=== PATIENT | female | born 1965 ===

== ENCOUNTER 2017-10-13 08:19 | Day surgery (SDC) | payer SELFPAY ==
[2017-10-13] MEDS ORDERED: Lactated Ringer's 1,000 ML IV ONE (08:37)
[2017-10-13] MEDS ORDERED: Propofol 10 mg/ml Inj (20 ML) ONE (09:55)
[2017-10-13] MEDS ORDERED: Lidocaine 2% MPF (5 ml) Inj ONE (09:56)
[2017-10-13 10:34] VITALS: BP 102/56; PULSE 49; RESP 13; TEMP 98; O2SAT 100
== END 2017-10-13 10:34 | disposition home or self-care (01) ==
LOC: H.ENDO 08:19
PROVIDERS: ATTEND Internal Medicine Gastroenterology
DX: Z12.11 Encounter for screening for malignant neoplasm of colon (principal); K64.0 First degree hemorrhoids
CPT/HCPCS: 45378; J2704; J7120

== ENCOUNTER 2017-11-17 12:34 | Emergency (ER) | payer SELFPAY ==
[2017-11-17 13:24] VITALS: BMI 32.3
[2017-11-17 13:25] VITALS: PULSE 78; RESP 16
[2017-11-17] MEDS ORDERED: Sodium Chloride 0.9% 1,000 ML IV STA (14:39)
--- NOTE | 2017-11-17 14:42 | ED PDOC ---
HPI: CCC, URI, Sore Throat Time Seen by Provider: 11/17/17 14:09 Chief Complaint (Nursing): Headache Chief Complaint (Provider): Cough, fever, headache since yesterday History Per: Patient History/Exam Limitations: no limitations Have you had recent travel within the past 21 days to any of the following countries: [place], [place], [place] or [place]?: No Onset/Duration Of Symptoms: Days Current Symptoms Are (Timing): Still Present Ear Symptoms: Bilateral: None Additional Complaint(s): 51 yo female with no medical problems presents with fever, chill, headache and cough since yesterday. PT has been taking motrin for pain and fever. Past Medical History Reviewed: Historical Data, Nursing Documentation, Vital Signs Vital Signs: Last Vital Signs Temp 98.9 F 11/17/17 13:24 Pulse 78 11/17/17 13:24 Resp 16 11/17/17 13:24 BP 113/62 11/17/17 13:24 Pulse Ox 96 11/17/17 14:44 - Medical History PMH: No Chronic Diseases - Surgical History Surgical History: No Surg Hx - Family History Family History: States: No Known Family Hx - Living Arrangements Living Arrangements: With Family - Social History Current smoker - smoking cessation education provided: No - Immunization History Hx Tetanus Toxoid Vaccination: No Hx Influenza Vaccination: No Hx Pneumococcal Vaccination: No - Home Medications Home Medications: Ambulatory Orders Medication Instructions Recorded Albuterol HFA [Ventolin HFA 90 1 puff IH BID PRN #1 unit 11/17/17 mcg/actuation (8 g)] Oseltamivir [Tamiflu] 75 mg PO BID #10 cap 11/17/17 - Allergies Allergies/Adverse Reactions: Allergies Allergy/AdvReac Type Severity Reaction Status Date / Time iodine Allergy ANAPHYLAXIS Verified 11/17/17 13:25 Review of Systems ROS Statement: Except As Marked, All Systems Reviewed And Found Negative Constitutional: Positive for: Fever, Chills. Negative for: Malaise ENT: Negative for: Ear Pain, Ear Discharge Cardiovascular: Negative for: Chest Pain Respiratory: Positive for: Cough. Negative for: Shortness of Breath, SOB with Exertion Gastrointestinal: Negative for: Nausea, Vomiting Physical Exam - Reviewed Nursing Documentation Reviewed: Yes Vital Signs Reviewed: Yes - Physical Exam Appears: Positive for: Well, Non-toxic, No Acute Distress Head Exam: Positive for: ATRAUMATIC, NORMAL INSPECTION, NORMOCEPHALIC Skin: Positive for: Normal Color, Warm, DRY Eye Exam: Positive for: Normal appearance ENT: Positive for: Normal ENT Inspection Neck: Positive for: Normal, Painless ROM Cardiovascular/Chest: Positive for: Regular Rate, Rhythm Respiratory: Positive for: CNT, Normal Breath Sounds Gastrointestinal/Abdominal: Positive for: Normal Exam, Bowel Sounds, Soft. Negative for: Tenderness Back: Positive for: Normal Inspection Extremity: Positive for: Normal ROM Neurologic/Psych: Positive for: Alert, Oriented - Laboratory Results Result Diagrams: 11/17/17 15:02 - ECG O2 Sat by Pulse Oximetry: 96 Medical Decision Making Medical Decision Making: Influenza (+) LAbs normal Disposition - Clinical Impression Clinical Impression: Influenza A - Patient ED Disposition Is Patient to be Admitted: No Counseled Patient/Family Regarding: Diagnosis, Need For Followup, Rx Given - Disposition Disposition: Routine/Home Disposition Time: 15:44 Condition: GOOD Prescriptions: Albuterol HFA [Ventolin HFA 90 mcg/actuation (8 g)] 1 puff IH BID PRN #1 unit PRN Reason: Shortness Of Breath Oseltamivir [Tamiflu] 75 mg PO BID #10 cap Instructions: Influenza (ED) Forms: [employer] (Ugandan) Print Language: SLOVENIAN
[2017-11-17 15:11] LABS: BASO % 0.4 % (0.0-2.0); HEMOGLOBIN 13.5 g/dL (12.0-16.0); LYMPH # 1.9 K/uL (1.0-4.3); LYMPH % 19.5 % (20.0-40.0); MEAN CELL VOLUME 85.2 fl (81.0-99.0); MEAN CORPUSCULAR HEMOGLOBIN 28.5 pg (27.0-31.0); MEAN CORPUSCULAR HGB CONC 33.4 g/dL (33.0-37.0); MEAN PLATELET VOLUME 8.7 fl (7.2-11.7); MONO # 0.9 K/uL (0.0-0.8); MONO % 9.5 % (0.0-10.0); NEUT % 70.6 % (50.0-75.0); NRBC % 0.2 % (0.0-0.0); RBC 4.75 Mil/uL (3.80-5.20); RED CELL DISTRIBUTION WIDTH 14.2 % (11.5-14.5)
--- NOTE | 2017-11-17 16:14 | RAD ---
HISTORY: coiugh, fever Cough, fever. COMPARISON: 11/06/2009. TECHNIQUE: Chest PA and lateral FINDINGS: LUNGS: No active pulmonary disease. PLEURA: No significant pleural effusion identified. No pneumothorax apparent. CARDIOVASCULAR: No radiographic findings to suggest acute or significant cardiovascular disease. OSSEOUS STRUCTURES: No significant abnormalities. VISUALIZED UPPER ABDOMEN: Normal. OTHER FINDINGS: None. IMPRESSION: No active disease. No significant interval change compared to the prior examination(s).
[2017-11-17 16:26] VITALS: BP 124/78; TEMP 98; O2SAT 98
[2017-11-17 16:29] LABS: ALB/GLOB RATIO 1.3 (1.0-2.1); ALBUMIN 4.6 g/dL (3.5-5.0); ALT/SGPT 34 U/L (9-52); AST/SGOT 28 U/L (14-36); BLOOD UREA NITROGEN 11 mg/dl (7-17); CALCIUM 9.2 mg/dL (8.4-10.2); GFR AFRICAN-AMERICAN > 60; GFR NON-AFRICAN AMERICAN > 60
== END 2017-11-17 16:27 | disposition home or self-care (01) ==
LOC: H.ER 12:34
DX: J11.1 Influenza due to unidentified influenza virus with other respiratory manifestations (principal)
CPT/HCPCS: 71046; 80053; 85025; 87804; 96360; 99284; J7040

== ENCOUNTER 2019-03-13 16:28 | Emergency (ER) | payer SELFPAY ==
[2019-03-13 16:28] VITALS: BMI 32.3
--- NOTE | 2019-03-13 17:19 | ED PDOC ---
Upper Extremity Pain/Injury Time Seen by Provider: 03/13/19 16:52 Chief Complaint (Nursing): Upper Extremity Problem/Injury Chief Complaint (Provider): Upper Extremity Problem/Injury History Per: Patient, Roller Hand ([place] [employer] Roller Hand #[id number]) History/Exam Limitations: no limitations Onset/Duration Of Symptoms: Days Current Symptoms Are (Timing): Still Present Additional Complaint(s): 53 y/o female with a PMHx of Pre-Diabetes presents to the ED for evaluation of left shoulder pain, onset last night. Patient states pain is constant and worse with movement. Patient notes she is unable to move her head to the right secondary to pain. Patient reports she has never experiences this pain before. Patient notes of last taking Tylenol at 11 AM with no relief. 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 Otherwise pt denies fevers, chills, numbness or tingling, injuries, difficulty breathing, leg pain or swelling, heart disease, recent travel, prolonged immbolization PMD: [facility] Past Medical History Reviewed: Historical Data, Nursing Documentation, Vital Signs Vital Signs: Last Vital Signs Temp 98.2 F 03/13/19 16:32 Pulse 68 03/13/19 16:32 Resp 20 03/13/19 16:32 BP 128/70 03/13/19 16:32 Pulse Ox 98 03/13/19 16:32 Primary Care Provider: FAMILY PROVIDER,NO - Medical History PMH: No Chronic Diseases - Surgical History Surgical History: No Surg Hx - Family History Family History: States: Unknown Family Hx - Immunization History Hx Tetanus Toxoid Vaccination: No Hx Influenza Vaccination: No Hx Pneumococcal Vaccination: No - Home Medications Home Medications: Ambulatory Orders Medication Instructions Recorded Albuterol HFA [Ventolin HFA 90 1 puff IH BID PRN #1 unit 11/17/17 mcg/actuation (8 g)] Oseltamivir Cap [Tamiflu] 75 mg PO BID #10 cap 11/17/17 Cyclobenzaprine [Cyclobenzaprine 10 mg PO TID PRN #12 tab 03/13/19 HCl] Naproxen 500 mg PO BID PRN #20 tab 03/13/19 - Allergies Allergies/Adverse Reactions: Allergies Allergy/AdvReac Type Severity Reaction Status Date / Time iodine Allergy ANAPHYLAXIS Verified 11/17/17 13:25 Review of Systems ROS Statement: Except As Marked, All Systems Reviewed And Found Negative Constitutional: Negative for: Fever Cardiovascular: Negative for: Chest Pain Respiratory: Negative for: Cough, Shortness of Breath Musculoskeletal: Positive for: Neck Pain, Shoulder Pain, Back Pain Neurological: Negative for: Weakness, Numbness Physical Exam - Reviewed Nursing Documentation Reviewed: Yes Vital Signs Reviewed: Yes - Physical Exam Comments: GENERAL APPEARANCE: Patient is awake, alert, oriented x 3, in no acute distress. SKIN: Warm, dry; (-) cyanosis. EYES: (-) conjunctival pallor. ENMT: Mucous membranes moist. NECK: (+) diffuse left trapezius tenderness, (+) left anterior shoulder tenderness, (+) decreased ROM secondary to pain, (-) stiffness, (-) lymphadenopathy. CHEST AND RESPIRATORY: (-) rales, (-) rhonchi, (-) wheezes; breath sounds equal bilaterally. HEART AND CARDIOVASCULAR: (-) irregularity; (-) murmur, (-) gallop. ABDOMEN AND GI: Soft; (-) tenderness; (-) palpable mass. BACK: (-) tenderness, (-) mild spasm, (-) direct bony tenderness, (-) deformity. Straight leg raising (-) bilaterally. EXTREMITIES: (-) deformity. Distal pulses good bilaterally. LUE: pulses +2, capillary refill <2sec, decrease ROM due to pain, (+) anterior and posterior shoulder tenderness, (-)swelling, (-)deformity, mildly decreased strength due to pain compared to right side NEURO AND PSYCH: Mental status as above. 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 DTRs symmetric. - ECG O2 Sat by Pulse Oximetry: 98 (RA) Pulse Ox Interpretation: Normal Medical Decision Making Medical Decision Making: Time: 1655 Impression: Likely muscular Plan: -- Flexeril 10 mg PO (pt is not driving home) -- Toradol 30 mg IM -- Shoulder Left XR -- re eval 17:55 Xr reviewed by me - no acute fractures or dislocations pt informed that she will be contacted if any discrepancies with radiology read 19:30 on re eval pt reports improved pain, though it is still there, worse with movement, mild improvement of ROM Discussed results, diagnosis, treatment, return precautions and f/u with pt who is understanding, in agreement and stable for dc Scribe Attestation: Documented by Ila Hope, acting as a scribe for Callum Fink PA-C. Provider Scribe Attestation: All medical record entries made by the Scribe were at my direction and personally dictated by me. I have reviewed the chart and agree that the record accurately reflects my personal performance of the history, physical exam, medical decision making, and the department course for this patient. I have also personally directed, reviewed, and agree with the discharge instructions and disposition. Disposition - Clinical Impression Clinical Impression: Shoulder pain, Muscle strain, shoulder region - Patient ED Disposition Is Patient to be Admitted: No Counseled Patient/Family Regarding: Studies Performed, Diagnosis, Need For Followup, Rx Given - Disposition Referrals: [facility] [Outside] Disposition: Routine/Home Disposition Time: 19:40 Condition: IMPROVED Additional Instructions: Momo por dejarnos cuidar de ti hoy. La atencin mdica de emergencia que recibi hoy se dirigi a herman sntomas agudos. Si le recetaron algn medicamento, llnelo y tmelo segn las indicaciones. No conduzca, opere maquinaria pesada ni tome alcohol cuando tome flexeril. Los sntomas pueden tardar varios malagon en resolverse. Regrese al Departamento de Emergencias si herman sntomas empeoran, no mejoran o si tiene otros problemas. Comunquese con paz mdico dentro de 2 malagon para vamshi nueva evaluacin y sascha un seguimiento o llame a liliana de los mdicos / clnicas a los que thomas sido referido y que figuran en el formulario de Informacin de visita al paciente que se incluye en paz paquete de juan. Lleve todos los documentos que recibi al momento del juan junto con los medicamentos que est tomando para paz visita de seguimiento. Nuestro tratamiento no puede reemplazar la atencin mdica continua por parte de un proveedor de atencin primaria (PCP) fuera del departamento de emergencias. Prescriptions: Cyclobenzaprine [Cyclobenzaprine HCl] 10 mg PO TID PRN #12 tab PRN Reason: muscle relaxation Naproxen 500 mg PO BID PRN #20 tab PRN Reason: Pain, Moderate (4-7) Instructions: Muscle Strain (DC), Shoulder Pain (DC) Forms: [employer] (Kyrgyz) Print Language: TAJIK - POA Present On Arrival: None
[2019-03-13 19:53] VITALS: BP 122/65; PULSE 73; RESP 18; TEMP 97.6
[2019-03-14 00:40] VITALS: O2SAT 98
--- NOTE | 2019-03-14 09:37 | RAD ---
Date of service: 03/13/2019 PROCEDURE: Radiographs of the Left Shoulder HISTORY: Pain. No history of recent/ related trauma provided. COMPARISON: No prior. TECHNIQUE: 3 views obtained. FINDINGS: BONES: Normal. No fracture. JOINTS: Normal. Glenohumeral and acromioclavicular joints preserved. No osteoarthritis. SOFT TISSUES: Normal. OTHER FINDINGS: None. IMPRESSION: Normal radiographs of the left shoulder.
== END 2019-03-13 19:52 | disposition home or self-care (01) ==
LOC: H.ER 16:28
DX: M25.512 Pain in left shoulder (principal); S46.912A Strain of unspecified muscle, fascia and tendon at shoulder and upper arm level, left arm, initial encounter; R73.03 Prediabetes
CPT/HCPCS: 73030; 96372; 99283; J1885